=== PATIENT | female | born 1960 | race Caucasian/White ===

== ENCOUNTER 2021-08-23 11:12 | Emergency (ER) | payer OTHER ==
[~2021-08-23] VITALS: Ht 170.2 cm; Wt 99.8 kg
[~2021-08-23 11:12] MED LIST: CELEXA 10 MG TA10 M1 PO; COLACE 100 MG100 MG PO; DYRENIUM100 MG; ESTRACE0.5 MG PO; HYDROCODON-ACE1 EAC7 PO; IBUPROFEN 600600 M1 PO; MULTIVITAMINS PO; NORCO 5-325 TA1 EACH PO; POTASSIUM20 PO; SLOW-MAG64 M1 PO; TRIAMTERENE-HC1 EAC1 PO; VALIUM2 MG PO
[2021-08-23 11:46] LABS: URINE BILIRUBIN NEGATIVE (Negative); URINE BLOOD NEGATIVE (Negative); URINE CLARITY CLEAR; URINE COLOR YELLOW; URINE GLUCOSE-RANDOM* NEGATIVE (Negative); URINE KETONES NEGATIVE (Negative); URINE LEUKOCYTES-REFLEX NEGATIVE (Negative); URINE NITRITE-REFLEX NEGATIVE (Negative); URINE PROTEIN (DIPSTICK) NEGATIVE (Negative); URINE SPECIFIC GRAVITY 1.015 (1.005-1.035); URINE UROBILINOGEN 0.2 E.U./dl (0.2-1.0)
[2021-08-23 12:36] LABS: ABSOLUTE NEUTROPHILS 5.2 thou/uL (1.4-8.2); BASOPHILS 0.7 % (0.0-2.0); EOSINOPHILS 2.9 % (0.0-3.0); HEMATOCRIT 45.2 % (37.0-47.0); HEMOGLOBIN 15.6 gm/dL (12.0-15.0); LYMPHOCYTES 27.6 % (24.0-44.0); MCH 31.9 pg (26.0-34.0); MCHC 34.5 g/dL (28.0-37.0); MCV 92.5 fL (80.0-100.0); MONOCYTES 8.9 % (1.0-8.0); PLATELET COUNT 272 thou/uL (150-400); POLYS 59.9 % (36.0-66.0); RBC 4.88 mil/uL (4.20-5.00); RDW 13.1 % (10.5-14.5); WBC 8.8 thou/uL (4.0-11.0)
[2021-08-23 12:48] LABS: CALCIUM 9.5 mg/dL (8.5-10.1); CREATININE 0.7 mg/dL (0.6-1.0); POTASSIUM 4.6 mmol/L (3.5-5.1)
[2021-08-23 12:59] LABS: ALBUMIN 4.1 g/dL (3.4-5.0); TOTAL BILIRUBIN 0.6 mg/dL (0.2-1.0); TOTAL PROTEIN 7.4 g/dL (6.4-8.2)
[2021-08-23 14:57] VITALS: BP 135/63
--- NOTE | 2021-08-24 07:28 | EKG ---
[address] [place] [address] ELECTROCARDIOGRAM REPORT Name: TAMERA JAY Room [facility]: [id number] Admission: 08/23/21 Attend Phys: Discharge: 08/23/21 Date of : 62 Report #: [id number] [facility] ED Test Date: 2021-08-23 Test Time: 12:23:36 Pat Name: TAMERA JAY Department: Room: Gender: F Customs Verifier: MARVIN : 1960 Requested By: Hari Gay Order Number: [id number] MD: Des Aguirre Measurements Intervals [place] Rate: 75 P: 58 IN: 134 QRS: 55 QRSD: 87 T: 79 QT: 402 QTc: 449 Interpretive Statements Sinus rhythm Baseline wander in lead(s) V2 Compared to ECG 09/04/2013 06:59:23 No significant changes Electronically Signed On 08-24-2021 7:28:19 CDT by Des Aguirre [email or web address] <ELECTRONICALLY SIGNED> By: Des Aguirre MD, [facility] 08/24/21 0728 1223 1223 Des Aguirre MD, FACC /EPI
== END 2021-08-23 14:57 | disposition home or self-care (01) ==
LOC: ER 11:12
PROVIDERS: Emergency Medicine; Nurse Practitioner
DX: U07.1 COVID-19 (principal); R11.0 Nausea; I10 Essential (primary) hypertension; R53.83 Other fatigue; E11.65 Type 2 diabetes mellitus with hyperglycemia; K21.9 Gastro-esophageal reflux disease without esophagitis; F32.9 Major depressive disorder, single episode, unspecified; Z90.710 Acquired absence of both cervix and uterus; Z87.442 Personal history of urinary calculi; Z98.890 Other specified postprocedural states; Z90.49 Acquired absence of other specified parts of digestive tract; Z79.899 Other long term (current) drug therapy; Z79.891 Long term (current) use of opiate analgesic; Z88.5 Allergy status to narcotic agent; Z91.013 Allergy to seafood